=== PATIENT | female | born 1985 | race Caucasian/White ===

== ENCOUNTER 2016-05-06 06:16 | Emergency (ER) | payer SELFPAY | END 2016-05-06 07:35 | disposition home or self-care (01) | LOC: D.ER 06:16 | DX: H66.93 Otitis media, unspecified, bilateral (principal); F17.200 Nicotine dependence, unspecified, uncomplicated ==

== ENCOUNTER 2016-09-09 12:52 | Emergency (ER) | payer SELFPAY | END 2016-09-09 13:52 | disposition home or self-care (01) | LOC: D.ER 12:52 | DX: H66.93 Otitis media, unspecified, bilateral (principal); J02.9 Acute pharyngitis, unspecified; R51 Headache; R09.89 Other specified symptoms and signs involving the circulatory and respiratory systems; R09.82 Postnasal drip ==

== ENCOUNTER 2019-01-16 11:59 | Emergency (ER) | payer MEDICAID ==
[~2019-01-16] VITALS: Ht 157.5 cm; Wt 90.9 kg
[2019-01-16 12:05] VITALS: BP 123/84; Ht 157.5 cm; Wt 90.9 kg
[2019-01-16 12:28] LABS: BASOPHILS 0.1 % (0-2); EOSINOPHILS 0.3 % (0-7); HEMATOCRIT 36.8 % (36.0-48.0); HEMOGLOBIN 12.5 g/dL (12-16); IMMATURE GRANULOCYTES 0.4 % (0-5); LYMPHOCYTES 9.4 % (15-50); MCH 29.2 pg (26.0-34.0); MEAN PLATELET VOLUME 8.6 fL (7.4-10.4); MONOCYTES 4.1 % (2-11); NEUTROPHILS 85.7 % (40-80); RBC 4.28 10x6/uL (4.00-5.40); WBC 16.5 10x3/uL (4.8-10.8)
[2019-01-16 12:29] LABS: PLATELET COUNT 453 10x3/uL (130-400)
[2019-01-16 12:35] LABS: CALC OSMOLALITY 267 mosm/kg (275-300); CALCIUM 8.8 mg/dL (8.5-10.1); CARBON DIOXIDE 20.6 mmol/L (21.0-32.0); CHLORIDE - SERUM 101 mmol/L (98-107); CREATININE - SERUM 0.6 mg/dL (0.6-1.3); GLUCOSE 107 mg/dL (74-106); SODIUM 135 mmol/L (136-145); UREA NITROGEN 8 mg/dL (7-18); eGFR NON AFRICAN AMERICAN > 90 mL/min (90-120)
[2019-01-16 12:43] LABS: ALBUMIN 3.7 g/dL (3.4-5.0); ALKALINE PHOSPHATASE 99 U/L (46-116); ALT (SGPT) 41 U/L (10-68); BILIRUBIN - TOTAL 0.27 mg/dL (0.2-1.3); PROTEIN - SERUM 8.4 g/dL (6.4-8.2)
== END 2019-01-16 12:45 | disposition left against medical advice (07) ==
LOC: D.ER 11:59
PROVIDERS: Family Medicine
DX: R05 Cough (principal)

== ENCOUNTER 2019-01-19 16:11 | Emergency (ER) | payer MEDICAID ==
[~2019-01-19] VITALS: Ht 162.6 cm; Wt 93.2 kg
[2019-01-19 16:17] VITALS: Ht 162.6 cm; Wt 93.2 kg
[2019-01-19 16:57] LABS: CALC OSMOLALITY 274 mosm/kg (275-300); CALCIUM 9.2 mg/dL (8.5-10.1); CARBON DIOXIDE 28.2 mmol/L (21.0-32.0); CHLORIDE - SERUM 102 mmol/L (98-107); CREATININE - SERUM 0.8 mg/dL (0.6-1.3); GLUCOSE 105 mg/dL (74-106); SODIUM 138 mmol/L (136-145); UREA NITROGEN 11 mg/dL (7-18); eGFR NON AFRICAN AMERICAN 86 mL/min (90-120)
[2019-01-19 16:59] LABS: APTT 32.5 SECONDS (22.8-39.4); INR 1.01 (0.85-1.17); PROTIME 12.8 SECONDS (11.6-15.0)
[2019-01-19 17:01] LABS: BASOPHILS 0.2 % (0-2); EOSINOPHILS 1.7 % (0-7); HEMATOCRIT 40.6 % (36.0-48.0); HEMOGLOBIN 13.2 g/dL (12-16); IMMATURE GRANULOCYTES 0.3 % (0-5); LYMPHOCYTES 18.7 % (15-50); MCH 28.3 pg (26.0-34.0); MCHC 32.5 g/dL (31.0-37.0); MCV 87.1 fL (80.0-100.0); MEAN PLATELET VOLUME 8.9 fL (7.4-10.4); MONOCYTES 4.4 % (2-11); NEUTROPHILS 74.7 % (40-80); PLATELET COUNT 560 10x3/uL (130-400); RBC 4.66 10x6/uL (4.00-5.40); RDW 12.8 % (11.5-14.5); WBC 11.7 10x3/uL (4.8-10.8)
[2019-01-19 17:12] LABS: ALBUMIN 3.5 g/dL (3.4-5.0); ALKALINE PHOSPHATASE 111 U/L (46-116); ALT (SGPT) 35 U/L (10-68); BILIRUBIN - TOTAL 0.24 mg/dL (0.2-1.3); CKMB 0.4 U/L (0.0-3.6); CREATINE KINASE 32 UL (21-215); PROTEIN - SERUM 8.2 g/dL (6.4-8.2); TROPONIN-I < 0.017 ng/mL (0.000-0.060)
[2019-01-19] MEDS ORDERED: TESSALON PERLE100 MG PO (19:47)
[2019-01-19] MEDS ORDERED: GUAIFENESI100 MG/5 M PO (19:47)
[2019-01-19 19:54] VITALS: BP 113/74
== END 2019-01-19 19:54 | disposition home or self-care (01) ==
LOC: D.ER 16:11
PROVIDERS: Family Medicine
DX: J40 Bronchitis, not specified as acute or chronic (principal); Z72.0 Tobacco use

== ENCOUNTER 2019-02-26 03:10 | Emergency (ER) | payer MEDICAID ==
[~2019-02-26] VITALS: Ht 162.6 cm; Wt 92.3 kg
[~2019-02-26 03:10] MED LIST: GUAIFENESI100 MG/5 M PO; TESSALON PERLE100 MG PO
[2019-02-26 03:16] VITALS: Ht 162.6 cm; Wt 92.3 kg
[2019-02-26 03:36] LABS: BASOPHILS 0.5 % (0-2); EOSINOPHILS 1.9 % (0-7); HEMATOCRIT 39.8 % (36.0-48.0); HEMOGLOBIN 12.9 g/dL (12-16); IMMATURE GRANULOCYTES 0.3 % (0-5); LYMPHOCYTES 29.2 % (15-50); MCH 27.7 pg (26.0-34.0); MCHC 32.4 g/dL (31.0-37.0); MCV 85.6 fL (80.0-100.0); MEAN PLATELET VOLUME 9.5 fL (7.4-10.4); NEUTROPHILS 62.1 % (40-80); RBC 4.65 10x6/uL (4.00-5.40); RDW 14.2 % (11.5-14.5); WBC 10.2 10x3/uL (4.8-10.8)
[2019-02-26 03:47] LABS: PLATELET COUNT 424 10x3/uL (130-400)
[2019-02-26 03:55] LABS: CALC OSMOLALITY 279 mosm/kg (275-300); CALCIUM 8.4 mg/dL (8.5-10.1); CARBON DIOXIDE 24.6 mmol/L (21.0-32.0); CHLORIDE - SERUM 104 mmol/L (98-107); CREATININE - SERUM 0.9 mg/dL (0.6-1.3); GLUCOSE 106 mg/dL (74-106); POTASSIUM - SERUM 4.7 mmol/L (3.5-5.1); SODIUM 139 mmol/L (136-145); UREA NITROGEN 17 mg/dL (7-18); eGFR NON AFRICAN AMERICAN 75 mL/min (90-120)
[2019-02-26 04:01] LABS: ALBUMIN 3.8 g/dL (3.4-5.0); ALKALINE PHOSPHATASE 84 U/L (46-116); ALT (SGPT) 27 U/L (10-68); BILIRUBIN - TOTAL 0.34 mg/dL (0.2-1.3); LIPASE 95 U/L (73-393); PROTEIN - SERUM 7.9 g/dL (6.4-8.2)
[2019-02-26 04:02] LABS: TROPONIN-I < 0.017 ng/mL (0.000-0.060)
[2019-02-26 04:24] LABS: APPEARANCE CLEAR (CLEAR); BILIRUBIN NEGATIVE (NEGATIVE); COLOR YELLOW (YELLOW); GLUCOSE NEGATIVE (NEGATIVE); KETONE SMALL mg/dL (NEGATIVE); NITRITE NEGATIVE (NEGATIVE); PROTEIN NEGATIVE (NEGATIVE); UROBILINOGEN NORMAL (NORMAL)
[2019-02-26 04:33] LABS: UDS - AMPHET NEGATIVE QUAL (NEGATIVE); UDS - BARB NEGATIVE QUAL (NEGATIVE); UDS - BENZO NEGATIVE QUAL (NEGATIVE); UDS - COCAINE NEGATIVE QUAL (NEGATIVE); UDS - OPIATE POSITIVE QUAL (NEGATIVE); UDS - PCP NEGATIVE QUAL (NEGATIVE); UDS - THC NEGATIVE QUAL (NEGATIVE)
[2019-02-26] MEDS ORDERED: OMEPRAZOLE20 M1 PO (05:43)
[2019-02-26 06:35] VITALS: BP 114/84
== END 2019-02-26 06:03 | disposition home or self-care (01) ==
LOC: D.ER 03:10
PROVIDERS: Family Medicine
DX: R10.13 Epigastric pain (principal)

== ENCOUNTER 2019-04-13 06:20 | Day surgery (SDC) | payer MEDICAID ==
[2019-04-11 11:31] LABS: BASOPHILS 0.3 % (0-2); EOSINOPHILS 1.7 % (0-7); HEMATOCRIT 37.4 % (36.0-48.0); HEMOGLOBIN 12.4 g/dL (12-16); IMMATURE GRANULOCYTES 0.1 % (0-5); LYMPHOCYTES 27.4 % (15-50); MCH 28.1 pg (26.0-34.0); MCHC 33.2 g/dL (31.0-37.0); MCV 84.6 fL (80.0-100.0); MEAN PLATELET VOLUME 8.8 fL (7.4-10.4); MONOCYTES 4.6 % (2-11); NEUTROPHILS 65.9 % (40-80); PLATELET COUNT 359 10x3/uL (130-400); RBC 4.42 10x6/uL (4.00-5.40); RDW 14.1 % (11.5-14.5); WBC 7.2 10x3/uL (4.8-10.8)
[2019-04-11 11:32] LABS: CALC OSMOLALITY 272 mosm/kg (275-300); CALCIUM 8.5 mg/dL (8.5-10.1); CARBON DIOXIDE 26.6 mmol/L (21.0-32.0); CHLORIDE - SERUM 102 mmol/L (98-107); CREATININE - SERUM 0.8 mg/dL (0.6-1.3); GLUCOSE 116 mg/dL (74-106); POTASSIUM - SERUM 4.2 mmol/L (3.5-5.1); SODIUM 136 mmol/L (136-145); UREA NITROGEN 12 mg/dL (7-18); eGFR NON AFRICAN AMERICAN 86 mL/min (90-120)
[~2019-04-13] VITALS: Ht 162.6 cm; Wt 89.8 kg
[~2019-04-13 06:20] MED LIST changes: +ADIPEX-P37.5 MG PO; +OMEPRAZOLE20 M1 PO
[2019-04-13 07:11] VITALS: BP 92/54; Ht 162.6 cm; Wt 89.8 kg
[2019-04-13 07:31] LABS: HCG URINE NEGATIVE (NEGATIVE)
[2019-04-13] MEDS ORDERED: HYDROCODON-ACE1 EA10 PO (09:46)
--- NOTE | 2019-04-13 09:55 | NUR ---
OPA IN AIRWAY ON ADMIT TO [facility]
--- NOTE | 2019-04-13 11:33 | NUR ---
DC INSTRUCTIONS GIVEN TO PT/FAMILY. STATE UNDERSTANDING. DC'D IV CATH FULLY INTACT.
--- NOTE | 2019-04-13 11:40 | NUR ---
PT LEFT UNIT VIA WC AT 1140
--- NOTE | 2019-04-17 08:06 | OP ---
PATIENT NAME: JOLENE DUFFY MEDICAL RECORD: [id number] :84 LOCATION:D.OPS ADMISSION DATE: SURGEON: RAMANA WEST MD DATE OF OPERATION: 04/13/2019 PREOPERATIVE DIAGNOSES: 1. Gallstones. 2. Diabetes mellitus. 3. E-cigarette use. POSTOPERATIVE DIAGNOSES: 1. Gallstones. 2. Diabetes mellitus. 3. E-cigarette use. PROCEDURE: Laparoscopic cholecystectomy. SURGEON: Ramana West MD REPORT OF PROCEDURE: The patient's abdomen was prepped and draped in sterile fashion. A cutdown was made on the superior aspect of the umbilicus. The 0 Vicryls were placed on the fascia bilaterally and the fascia was incised with 15-blade. I then bluntly entered the peritoneal cavity and placed a 12-mm Elvi port. Under direct visualization, a 5-mm trocar was placed in the epigastrium and 2 more 5-mm trocars were placed in the right subcostal region. The gallbladder was grasped and elevated. There were no sign of any inflammatory changes. The cystic artery and cystic duct were dissected free and these were clipped proximally and distally and ligated in standard fashion. The gallbladder was taken off the liver bed using electrocautery and placed into the right upper quadrant. Any bleeding from the liver bed was then treated with electrocautery. At this point, the ports and insufflation were then removed and the gallbladder was taken out through the umbilicus. The umbilical fascia was closed with interrupted 0 Vicryls times 3. The wounds were then irrigated out with normal saline and infused with 10 mL of 0.25% Marcaine with epinephrine. The skin incisions were all closed with subcutaneous 5-0 Monocryl and dressed appropriately. COMPLICATIONS: None. CONDITION: Stable. ANESTHESIA: General endotracheal and local. BLOOD LOSS: Minimal. TRANSINT:[id number] Voice Confirmation ID: [id number] DOCUMENT ID: [id number] OPERATIVE REPORT [id number] JOLENE DUFFY CHRISTIAN MD at 0806 CC: REINA SIERRA [id number] DICTATION DATE: 04/13/19 0949 FOREMAN/PROJECT MANAGER: 04/13/19 1015 [facility] 04/13/19 [facility] [address] [place] [address]
== END 2019-04-13 11:40 | disposition home or self-care (01) ==
LOC: D.OPS 06:20 → D.PAN 08:30 → D.OPS 08:30
PROVIDERS: ATTEND Surgery
DX: K80.80 Other cholelithiasis without obstruction (principal); E11.9 Type 2 diabetes mellitus without complications